=== PATIENT | female | born 1985 | race Hispanic/Latino ===

== ENCOUNTER 2016-11-25 10:20 | Emergency (ER) | payer OTHER ==
[~2016-11-25] VITALS: Ht 170.2 cm; Wt 93.0 kg
--- NOTE | 2016-11-25 11:12 | ED GENERAL ADULT ---
History of Present Illness General Chief Complaint: General Adult Stated Complaint: FLU LIKE SYMPTOMS Source: patient Exam Limitations: no limitations Vital Signs & Intake/Output Vital Signs & Intake/Output Vital Signs Date Time Temp Pulse Resp B/P Pulse O2 O2 Flow FiO2 Ox Delivery Rate 11/25 1214 134/82 11/25 1208 99.2 107 17 146/87 98 Room Air 11/25 1106 98 Room Air 11/25 1030 99.1 111 20 148/97 97 Room Air Allergies Coded Allergies: clindamycin (RASH 11/25/16) Reconcile Medications Pnv No.122/Iron/Folic Acid ( Multi Tablet) 27 MG IRON-800 MCG TABLET 1 TAB PO DAILY HEALTH SUPPLEMENT (Reported) Triage Note: PT C/O FEVER, CHILLS X [address], BODYACHES, H/A. STATES SHE IS 15 WEEKS . . PT DENIES VAG BLEEDING OR ANY PROBLEMS ASSOCIATED WITH . LAST SAW OB 2 WEEKS AGO Triage Nurses Notes Reviewed? yes Onset: Gradual Duration: week(s): (1) Timing: remote history Injury Environment: home Severity: moderate Severity Numbers: 6 Modifying Factors: Improves With: medication (tylenol). : Yes Patient currently breastfeeds: No HPI: Patient is a 31-year-old female presenting to the emergency department with chief complaint of fevers on and off for the past one week with malaise. She reports that this actually is feeling better but thought she should get evaluated since she is currently 16 weeks . Denies any urinary frequency or urgency or dysuria. No abdominal pain. No vaginal bleeding. Denies any headaches. No visual changes. Denies any congestion. Reports that she might have had a sore throat, days ago but nothing currently. Denies any trouble eating. She is drinking fluids without difficulty. Denies any diarrhea. No recent travel. She does work around many people unsure about any sick exposures. (KATIE CMKNIGHT) Past History Travel History Traveled to [place] past 21 day No Medical History Any Pertinent Medical History? see below for history Surgical History Surgical History: non-contributory Psychosocial History What is your primary language Spanish Tobacco Use: Never used ETOH Use: denies use Illicit Drug Use: denies illicit drug use Family History Hx Contributory? No (KATIE MCKNIGHT) Review of Systems Review of Systems Constitutional: Reports: fever, malaise. Comments Review of systems: See HPI, All other systems negative. Constitutional, no weight loss HEENT: No visual changes no congestion Cardiovascular: No chest pain ,palpitation , orthopnea or ankle swelling Skin, no jaundice no rashes Respiratory: No dyspnea cough sputum or hemoptysis GI: No nausea no vomiting : No dysuria No hematuria Muscle skeletal: no back pain, no neck pain, Neurologic: No numbness no confusion, no headaches Psych: No stress anxiety or depression,. Heme/endocrine: No bruising no bleeding no polyuria or polydipsia Immunology: No splenectomy or history of AIDS (KATIE MCKNIGHT) Physical Exam Physical Exam General Appearance: well developed/nourished, no apparent distress, alert, awake , comfortable Comments: Well-developed well-nourished person in no acute distress HEENT: Normal EENT exam, extraocular motion intact, no nystagmus. Pupils equally round and reactive to light and accommodation. Nose is atraumatic. External auditory canal and Tympanic membranes clear. Pharynx is minimally erythematous, no exudates, clearing secretions without difficulty.. No swelling or edema. Neck: Supple, no lymphadenopathy, normal range of motion without pain or tenderness Back: Nontender, no CVA tenderness. Cardiovascular: Regular rate and rhythms no murmurs rubs or gallops, normal JVP Respiratory: Chest nontender. No respiratory distress.breath sounds clear to auscultation bilaterally Abdomen: Soft, nontender nondistended, no appreciable organomegaly. Normal bowel sounds. No ascites, no rebound or guarding Extremity: No edema Neuro: Alert oriented x3 Skin: No appreciable rash on exposed skin, skin is warm and dry. Psych: Mood and affect is normal, memory and judgment is normal. Core Measures ACS in differential dx? No CVA/TIA Diagnosis: No Severe Sepsis Present: No Septic Shock Present: No (KATIE MCKNIGHT) Progress Differential Diagnoses I considered the following diagnoses in my evaluation of the patient: Viral syndrome, influenza, strep, UTI Plan of Care: Orders Procedure Date/time Status RAPID VIRAL INFLUENZA A 11/25 1112 Complete THROAT CULTURE W/QUICK STREP 11/25 111 Active URINALYSIS 11/25 111 Complete Laboratory Tests 11/25/16 1121: Urine Color STRAW, Urine Clarity CLEAR, Urine pH 6.0, Ur Specific Lyles 1.010, Urine Protein NEG, Urine Ketones NEG, Urine Nitrite NEG, Urine Bilirubin NEG, Urine Urobilinogen 0.2, Ur Leukocyte Esterase NEG, Ur Microscopic EXAM NOT REQUIRED, Urine Hemoglobin NEG, Urine Glucose NEG Microbiology 11/25 1131 NASOPHARYN: Influenza Virus A & B Rapid Smear - COMP Initial ED EKG: none Comments: 11/25/2016 11:15:33 AM patient's in no acute chest pressure with that her symptoms are improving today. She did take a dose of Tylenol earlier this morning, afebrile now. Minimal erythema in the pharynx. We'll assess for strep , influenza and urinalysis for UTI. Follow likely other viral process that has been improving. She'll follow with her PCP. 11/25/2016 11:55:03 AM patient informed of urinalysis results, negative flu and negative strep. Likely other viral process. Patient is well-appearing. We will check a manual blood pressure prior to discharge. Discussed with Dr. Galvez and she agrees to plan. She'll continue taking Tylenol instructed for any aches or pains or fevers. She'll follow up with the PCP in the next 2-3 days. Repeat blood pressure is 134/82. (KATIE MCKNIGHT) Departure Departure Time of Disposition: 1155 Disposition: HOME OR SELF CARE Condition: Stable Clinical Impression Primary Impression: Fever Qualifiers: Fever type: unspecified Qualified Code: R50.9 - Fever, unspecified Secondary Impressions: Malaise Referrals: MACARIO FERRIS,BRITTANY Ferraro (PCP/Family) Additional Instructions: Follow-up with your primary care physician call to make an appointment. Increase fluids. Take Tylenol as directed for any aches or pains. Return for worsening symptoms or concerns. Otherwise make an appointment with your primary care physician in the next 2-3 days. Departure Forms: Customer Survey General Discharge Information (KATIE MCKNIGHT) PA/SUPPORT ASSOCIATE Co-Sign Statement Statement: ED Attending supervision documentation- [] I saw and evaluated the patient. I have also reviewed all the pertinent lab results and diagnostic results. I agree with the findings and the plan of care as documented in the PA's/SUPPORT ASSOCIATE's documentation. [X] I have reviewed the ED Record and agree with the PA's/SUPPORT ASSOCIATE's documentation. [] Additions or exceptions (if any) to the PAs/SUPPORT ASSOCIATE's note and plan are summarized below: [] (TEODORO FERRIS,ADAMARIS) Critical Care Note Critical Care Note Critical Care Time: non-applicable (ARMANI TOVAR,KATIE)
[2016-11-25] MEDS ORDERED: PRENATAL MULTI1 EAC2 PO (11:37)
== END 2016-11-25 12:33 ==
LOC: ERH 10:20
DX: O26.92 Pregnancy related conditions, unspecified, second trimester (principal); R50.9 Fever, unspecified; R53.81 Other malaise; Z3A.16 16 weeks gestation of pregnancy
CPT/HCPCS: 81003; 87804; 87804-59